=== PATIENT | female | born 2000 | race African-American/Black ===

== ENCOUNTER 2020-11-02 20:18 | Emergency (ER) | payer OTHER ==
[~2020-11-02] VITALS: Ht 167.6 cm; Wt 74.9 kg
[2020-11-02 20:19] VITALS: BP 145/74
[2020-11-02] MEDS ORDERED: IBUP-1022 PO (22:24)
[2020-11-02] MEDS ORDERED: CYCL-707 PO (22:24)
[2020-11-02] MEDS ORDERED: carisoprodoL 350 MG TAB PO ONE (22:25)
[2020-11-02] MEDS ORDERED: IBUPROFEN 600MG TAB PO ONE (22:25)
== END 2020-11-02 22:46 | disposition home or self-care (01) ==
LOC: M ED 20:18
DX: M54.5 Low back pain (principal)